=== PATIENT | male | born 1945 | race African-American/Black ===

== ENCOUNTER 2016-08-20 03:25 | Outpatient (CLI) | payer MEDICARE, BC ==
[~2016-08-20] VITALS: Ht 182.9 cm; Wt 72.0 kg
[~2016-08-20 03:25] MED LIST: ADALAT CC90 MG PO; CLONAZEPAM2 MG/TAB PO; COREG25 MG PO; HYDROCODON-ACE1 EAC7 PO; LIORESAL 10 MG10 MG PO; NITRO-BID60 GM TOPICAL; NITROSTAT0.4 MG SL; PENTOXIFYLLINE400 MG PO; PEPCID20 MG PO; PHOSLO667 MG PO; PRINIVIL20 MG PO; VICODIN 5/500 T1 TAB PO
--- NOTE | 2016-08-20 03:30 | NUR ---
RECEIVED FROM [facility], PT VITALS ARE T-98.5, P-112, R-22, BP 230/121, O2-100, 2.5L, PT COMPLAINS OF CHEST PAIN, EKG IS COMPLETE, TELEMTRY IS ON,CALL LIGHT IN REACH, BED IS LOW, SRX2
[2016-08-20 04:00] VITALS: BP 120/121
--- NOTE | 2016-08-20 04:13 | NUR ---
PLACED A PHONE CALL TO [facility] ABOUT BP-230/121
[2016-08-20 05:43] LABS: BASOPHILS 0.3 % (0.0-2.0); EOSINOPHILS 2.8 % (0-7); HEMATOCRIT 33.4 % (42.0-54.0); HEMOGLOBIN 11.3 g/dL (13.5-17.5); IMMATURE GRANULOCYTES 0.3 % (0-5); MCH 35.3 pg (26.0-34.0); MCHC 33.8 g/dL (31.0-37.0); MCV 104.4 fL (80.0-100.0); MEAN PLATELET VOLUME 9.5 fL (7.4-10.4); MONOCYTES 9.2 % (2-11); NEUTROPHILS 57.4 % (40-80); RDW 13.5 % (11.5-14.5); WBC 3.6 10x3/uL (4.8-10.8)
[2016-08-20 06:02] LABS: PLATELET COUNT 163 10x3/uL (130-400)
[2016-08-20 06:26] LABS: ANION GAP 17.9 mmol/L (8-16); CALCIUM 11.2 mg/dL (8.5-10.1); CARBON DIOXIDE 29.5 mmol/L (21.0-32.0); CREATININE - SERUM 13.3 mg/dL (0.6-1.3); MAGNESIUM - SERUM 2.5 mg/dL (1.8-2.4); PHOSPHOROUS 5.4 mg/dL (2.5-4.9); POTASSIUM - SERUM 4.4 mmol/L (3.5-5.1); TROPONIN-I 0.06 ng/mL (0.000-0.060)
[2016-08-20 08:15] VITALS: BP 199/93
--- NOTE | 2016-08-20 08:15 | NUR ---
PT RESTING IN BED WITH EYES OPEN CALL LIGHT IN REACH NO PROBLEMS WILL MONITER
--- NOTE | 2016-08-20 09:55 | NUR ---
RESP UL ON . JORJE NEEDS AT THIS TIME. CALL LIGHT IN REACH. WILL MONITOR.
[2016-08-20 12:24] VITALS: BP 130/45
[2016-08-20 12:37] LABS: CKMB 1.4 U/L (0.0-3.6); CREATINE KINASE 62 UL (21-232)
[2016-08-20 12:41] LABS: TROPONIN-I 0.095 ng/mL (0.000-0.060)
[2016-08-20 13:00] VITALS: Ht 182.9 cm; Wt 72.0 kg
--- NOTE | 2016-08-20 14:30 | NUR ---
PT WENT TO DIALYSIS PER WHEELCHAIR
--- NOTE | 2016-08-20 15:55 | NUR ---
DIALYSIS NURSE CALLED FROM DIALYSIS SUITE PT BLOOD PRESSURE ELEVATED AND PULSE NURSE PRACTIONER HERMAN CALLED ORDERED 30MG LABETELOL ORDERED WILL GIVE ORDERED
--- NOTE | 2016-08-20 19:35 | NUR ---
RECEIVED REPORT, PT JUST BACK FROM DIALYSIS, ASK IF FEELING BETTER, SAID YES READY TO GO HOME, IV-RFA-SL, [id number], RESERVED L. Matty BARCLAY AVF, DIALYSIS MON, WED, FRI, CALL LIGHT IN REACH, WILL CONTINUE TO MONITOR
[2016-08-20 20:00] VITALS: BP 138/77
[2016-08-21] VITALS: BP 128/64
--- NOTE | 2016-08-21 00:53 | NUR ---
SLAT BASKET MAKER MACHINE AT BEDSIDE, NEEDS ADDRESSED AT THIS TIME. CALL LIGHT IN REACH. WILL CONT TO MONITOR.
[2016-08-21 04:00] VITALS: BP 130/70
--- NOTE | 2016-08-21 05:46 | NUR ---
PT IS ALERT. NO SS OF DISTRESS AT THIS TIME. WILL CONTINUE TO MONITOR.
[2016-08-21 05:55] LABS: BASOPHILS 0.5 % (0.0-2.0); EOSINOPHILS 3.2 % (0-7); HEMATOCRIT 30.6 % (42.0-54.0); IMMATURE GRANULOCYTES 0.2 % (0-5); LYMPHOCYTES 33.7 % (15-50); MCH 34.2 pg (26.0-34.0); MCHC 32.7 g/dL (31.0-37.0); MCV 104.8 fL (80.0-100.0); MEAN PLATELET VOLUME 9.5 fL (7.4-10.4); MONOCYTES 15.1 % (2-11); NEUTROPHILS 47.3 % (40-80); PLATELET COUNT 146 10x3/uL (130-400); RBC 2.92 10x6/uL (4.20-6.10); RDW 13.5 % (11.5-14.5)
[2016-08-21 06:32] LABS: CALCIUM 9.4 mg/dL (8.5-10.1); CARBON DIOXIDE 32.1 mmol/L (21.0-32.0); CHLORIDE - SERUM 97 mmol/L (98-107); CKMB 0.6 U/L (0.0-3.6); CREATINE KINASE 58 UL (21-232); GLUCOSE 94 mg/dL (74-106); PHOSPHOROUS 4.6 mg/dL (2.5-4.9); POTASSIUM - SERUM 3.8 mmol/L (3.5-5.1); SODIUM 137 mmol/L (136-145)
[2016-08-21 06:33] LABS: CALC OSMOLALITY 281 mosm/kg (275-300); CREATININE - SERUM 9.9 mg/dL (0.6-1.3); TROPONIN-I 0.126 ng/mL (0.000-0.060); UREA NITROGEN 36 mg/dL (7-18); eGFR NON AFRICAN AMERICAN 6 mL/min (90-120)
--- NOTE | 2016-08-21 07:36 | NUR ---
PT IS ALERT. ASSESSMENT DONE PER FLOWSHEET. NO OTHER NEEDS AT THIS TIME. WILL CONTINUE TO YASMINE.
[2016-08-21 07:54] VITALS: BP 158/65
[2016-08-21] MEDS ORDERED: PROTONIX40 MG PO (10:56)
[2016-08-21 11:38] VITALS: BP 127/67
--- NOTE | 2016-08-21 13:53 | NUR ---
Patient Name: CHASTITY REYES Admission Status: Elective Accout number: [id number] Admission Date: 08-20-2016 : 1945 Admission Diagnosis: Attending: NINO Current LOS: 1 Anticipated DC Date: 08-21-2016 Planned Disposition: Home Primary Insurance: MEDICARE A & B Discharge Planning Comments: * Is the patient Alert and Oriented? Yes 0 * How many steps to enter\exit or inside your home? NONE 0 * PCP DR. CONNOLLY AT [facility] 0 * Pharmacy PA ONLY 0 * Preadmission Environment Home with Family 0 * ADLs Independent 0 * Equipment None 0 * Other Equipment [facility] PROVIDER PREFERENCE 0 * List name and contact numbers for known caregivers / representatives who currently or will assist patient after discharge: FANTA REYES, SPOUSE, 0 * Community resources currently utilized None 0 * Please name any agencies selected above. NONE 0 * Additional services required to return to the preadmission environment? No 0 * Can the patient safely return to the preadmission environment? Yes 0 * Has this patient been hospitalized within the prior 30 days at any hospital? No 0 CM MET WITH PT IN ROOM TO DISCUSS DISCHARGE PLANNING AND NEEDS. PT REPORTS LIVING AT HOME INDEPENDENTLY WITH SPOUSE. PT HAS NO MEDICAL EQUIPMENT AND NO OUTSIDE SERVICES ASSISTING IN THE HOME. CM DISCUSSED AVAILABILITY OF HOME HEALTH, REHAB SERVICES AND MEDICAL EQUIPMENT. PT DENIES DISCHARGE NEEDS, REPORTS HIS WILL PICK HIM UP FOR DISCHARGE HOME. IMPORTANT MESSAGE FROM MEDICARE PROVIDED AND EXPLAINED. Groundman/Lineman: Oseas Blackmon
[2016-08-22 17:12] LABS: SPE - A/G RATIO 1.2 (0.7-1.7); SPE - ALBUMIN 3.8 g/dL (2.9-4.4); SPE - ALPHA-1 GLOBULIN 0.2 g/dL (0.0-0.4); SPE - ALPHA-2 GLOBULIN 0.9 g/dL (0.4-1.0); SPE - BETA GLOBULIN 0.8 g/dL (0.7-1.3); SPE - GAMMA GLOBULIN 1.3 g/dL (0.4-1.8); SPE - M-SPIKE Not Observed g/dL (Not Observed)
--- NOTE | 2016-08-24 14:54 | EC ---
PATIENT:CHASTITY REYES DATE OF SERVICE: 08/20/16 SEX: M MEDICAL RECORD: [id number] DATE OF : [birth year] LOCATION:D.OPS AGE OF PATIENT: 71 ADMISSION DATE: 08/20/16 REFERRING PHYSICIAN: INTERPRETING PHYSICIAN: AMBROCIO SAMUELS M.D. ECHOCARDIOGRAM REPORT ECHO CHARGES 4 ECHO COMPLETE CLINICAL DIAGNOSIS: HTN HX CAD/STENTS X3/HTN ECHOCARDIOGRAPHIC MEASUREMENTS (adult normal given) AC root (d.<3.7cm) 4.0 LV Septum d (<1.2 cm> 1.8 Valve Excursion 1.7 LV Septum (systole) 2.1 Left Atria (s.<4.0cm> 4.8 LVPW d(<1.2cm) 1.8 RV (d.<2.3cm) 4.4 LVPW (sytole) 2.4 LV diastole(<5.6CM) 5.8 MV E-F(>70mm/sec) LV systole 3.5 LVOT Diameter 1.5 MV exc.(>10mm) 1.9 Est.ejection fraction (50-75%) Pericardial Effusion N DOPPLER: LVIT A 123 E 161 LA RVSP 42 LVOT 163 AOP1/2T Asc. Ao 224 RVOT 111 RA PA 176 AV Gradient Peak 20.10 AV Mean 10.79 AV Area 1.3 MV Gradient Peak 13.41 MV Mean 6.16 MV Area COMMENTS: Melter Operator: Sam GAMBOA Deep Fat Fry Cook:2 Dr. Samuels TAPE# PACS DATE OF SERVICE: 08/20/2016 REFERRING PHYSICIAN: Jose Prado MD INDICATION: Hypertension and coronary artery disease. DESCRIPTION: Left ventricle demonstrates left ventricular hypertrophy. No wall motion abnormalities were seen. Estimated ejection fraction is 55%. Mitral valve is structurally normal. There is mild regurgitation seen. Left atrium is moderately dilated. The aortic valve leaflets are thickened. Peak gradient ECHOCARDIOGRAM REPORT [id number] CHASTITY REYES across the valve is 20 mmHg. There is no insufficiency seen. Right ventricle is mildly dilated. Tricuspid valve is structurally normal. There is mild to moderate regurgitation noted. Right atrium is normal in size. There is no pericardial effusion seen. IMPRESSION: 1. Left ventricular hypertrophy with preserved ejection fraction of 55%. 2. Mild mitral regurgitation. 3. Mild aortic stenosis. 4. Mild to moderate tricuspid regurgitation. TRANSINT:[id number] Voice Confirmation ID: [id number] DOCUMENT ID: [id number] AMBROCIO SAMUELS M.D. at 1454 CC: [id number] DICTATION DATE: 08/20/161613 NATIONAL INVESTIGATIVE PRODUCER: 08/21/16 0446 DEP CLI 08/21/16 [place] [id number] [place] [id number]
== END 2016-08-21 12:59 | disposition home or self-care (01) ==
LOC: D.M2 03:25 → D.OPS 03:25 → EDSTATUS 12:30 → D.M2 08-21 12:59 → D.OPS 08-21 12:59
PROVIDERS: Internal Medicine Nephrology
PROC: 5A1D00Z (ICD-10-PCS; principal; 2016-08-20)
DX: R07.9 Chest pain, unspecified (principal); N18.6 End stage renal disease; I12.0 Hypertensive chronic kidney disease with stage 5 chronic kidney disease or end stage renal disease; Z99.2 Dependence on renal dialysis; D63.1 Anemia in chronic kidney disease; I25.10 Atherosclerotic heart disease of native coronary artery without angina pectoris; E83.39 Other disorders of phosphorus metabolism; E83.52 Hypercalcemia; Z95.5 Presence of coronary angioplasty implant and graft; Z87.891 Personal history of nicotine dependence